=== PATIENT | female | born 1940 | race Caucasian/White ===

== ENCOUNTER → 2017-04-26 | Outpatient (CLI) | payer OTHER ==
[~2017-04-26] MED LIST: ASCO500C2; LEVO100T PO; MVI,10VI2; OMEP10CA2; VITA100C4
== END | disposition home or self-care (01) ==
LOC: CFH 12:00
PROVIDERS: ATTEND Internal Medicine
DX: M25.551 Pain in right hip (principal)

== ENCOUNTER → 2017-10-15 | Outpatient (CLI) | payer OTHER | END | disposition home or self-care (01) | LOC: CFH 10:48 | PROVIDERS: ATTEND Internal Medicine | DX: Z12.31 Encounter for screening mammogram for malignant neoplasm of breast (principal) | CPT/HCPCS: 77067 ==

== ENCOUNTER → 2018-03-15 | Outpatient (CLI) | payer OTHER | END | disposition home or self-care (01) | LOC: CFH 12:32 | PROVIDERS: ATTEND Internal Medicine | DX: M48.02 Spinal stenosis, cervical region (principal); M50.322 Other cervical disc degeneration at C5-C6 level | CPT/HCPCS: 72050 ==

== ENCOUNTER → 2018-09-13 | Outpatient (CLI) | payer OTHER | END | disposition home or self-care (01) | LOC: CFH 09:55 | PROVIDERS: ATTEND Internal Medicine | DX: Z13.820 Encounter for screening for osteoporosis (principal); E89.0 Postprocedural hypothyroidism; Z78.0 Asymptomatic menopausal state | CPT/HCPCS: 77080 ==

== ENCOUNTER → 2018-10-17 | Outpatient (CLI) | payer MEDICARE | END | disposition home or self-care (01) | LOC: CFH 10:44 | PROVIDERS: ATTEND Internal Medicine | DX: Z12.31 Encounter for screening mammogram for malignant neoplasm of breast (principal) | CPT/HCPCS: 77063; 77067 ==

== ENCOUNTER → 2019-11-07 | Outpatient (CLI) | payer MEDICARE | END | disposition home or self-care (01) | LOC: CFH 10:26 | PROVIDERS: ATTEND Internal Medicine | DX: Z12.31 Encounter for screening mammogram for malignant neoplasm of breast (principal) | CPT/HCPCS: 77063; 77067 ==

== ENCOUNTER → 2020-06-28 | Outpatient (CLI) | payer MEDICARE | END | disposition home or self-care (01) | LOC: CFH 09:42 | PROVIDERS: ATTEND Internal Medicine | DX: Z13.820 Encounter for screening for osteoporosis (principal); M81.0 Age-related osteoporosis without current pathological fracture; Z78.0 Asymptomatic menopausal state | CPT/HCPCS: 77080 ==

== ENCOUNTER → 2020-11-10 | Outpatient (CLI) | payer MEDICARE | END | disposition home or self-care (01) | LOC: CFH 10:13 | PROVIDERS: ATTEND Internal Medicine | DX: Z12.31 Encounter for screening mammogram for malignant neoplasm of breast (principal); N64.89 Other specified disorders of breast | CPT/HCPCS: 77063; 77067 ==

== ENCOUNTER 2021-04-09 14:11 | Emergency (ER) | payer MEDICARE ==
[~2021-04-09] VITALS: Ht 170.2 cm; Wt 62.0 kg
[2021-04-09 14:13] VITALS: BP 157/73
[2021-04-09] MEDS ORDERED: FAMOTIDINE 20 MG TABLET ONE (14:48)
[2021-04-09] MEDS ORDERED: DIPHENHYDRAMINE 25 MG CAPSULE ONE (14:48)
[2021-04-09] MEDS ORDERED: FAMOTIDINE 20 MG TABLET PO ONE (15:00)
[2021-04-09] MEDS ORDERED: DIPHENHYDRAMINE 25 MG CAPSULE PO ONE (15:00)
--- NOTE | 2021-04-09 15:41 | NUR ---
PT HAS RASH ALL OVER BODY, RED, ITCHY. MEDICATED PER ORDERS, PT DENIES RELIEF
[2021-04-09] MEDS ORDERED: EPINEPHRINE 1 MG/ML, 1ML SQ ONE (16:30)
== END 2021-04-09 16:54 | disposition home or self-care (01) ==
LOC: ED 15:47
DX: L50.9 Urticaria, unspecified (principal); E78.5 Hyperlipidemia, unspecified; R94.31 Abnormal electrocardiogram [ECG] [EKG]; Z88.2 Allergy status to sulfonamides
CPT/HCPCS: 93005; 99284; J7512; Q0163

== ENCOUNTER 2021-04-11 11:29 | Emergency (ER) | payer MEDICARE ==
[~2021-04-11] VITALS: Ht 170.2 cm; Wt 63.4 kg
[2021-04-11 11:37] VITALS: BP 126/77
--- NOTE | 2021-04-11 11:55 | NUR ---
PT PRESENTS TO ED CONCERNED ABOUT HER UTICARIA FLARING UP, PT REPORTS SHE WAS A LITTLE OFF SCHEDULE WITH MEDS YESTERDAY, AND HIVES SWELLED, CREATED PAIN, BLISTERING. PT UNABLE TO SEE PRIMARY MD UNTIL FOR CURRENT PROBLEM. NAD NOTED AT THIS TIME, RESPIRATIONS EVEN AND UNLABORED ON RA. SITTING UP IN CHAIR.
[2021-04-11 12:56] LABS: BASOPHILS % (AUTO) 0 % (0-1); EOSINOPHILS % (AUTO) 0 % (1-7); LYMPHOCYTES % (AUTO) 3 % (22-44); MEAN CORPUSCULAR HEMOGLOBIN 32.5 pg (27.0-34.8); MEAN CORPUSCULAR HGB CONC 33.4 g/dL (32.4-35.8); MEAN PLATELET VOLUME 9.4 fL (7.4-10.4); MONOCYTES % (AUTO) 1 % (2-9); NEUTROPHILS % (AUTO) 96 % (42-75); PLATELET COUNT 195 x10^3/uL (130-400); RED BLOOD COUNT 4.43 x10^6/uL (3.82-5.3); RED CELL DISTRIBUTION WIDTH 13.3 % (9.6-15.2)
[2021-04-11 13:06] LABS: CALCIUM 9.1 mg/dL (8.5-10.1)
[2021-04-11 13:12] LABS: ALANINE AMINOTRANSFERASE 25 U/L (12-78); ALKALINE PHOSPHATASE 55 U/L (45-117); BILIRUBIN,TOTAL 0.4 mg/dL (0.2-1.0); CREATININE 0.64 mg/dL (0.55-1.02); TOTAL PROTEIN 7.5 g/dL (6.4-8.2)
[2021-04-11 13:15] LABS: CHLORIDE 108 mmol/L (98-107)
[2021-04-11 13:16] LABS: ANION GAP 3 mmol/L (5-15)
== END 2021-04-11 14:04 | disposition home or self-care (01) ==
LOC: ED 11:48
DX: T78.40XA Allergy, unspecified, initial encounter (principal); E78.5 Hyperlipidemia, unspecified; X58.XXXA Exposure to other specified factors, initial encounter
CPT/HCPCS: 36415; 80053; 85025; 99283